=== PATIENT | female | born 1980 | race Caucasian/White ===

== ENCOUNTER 2022-09-22 08:01 | Outpatient (CLI) | payer BC, SELFPAY ==
--- OUTSIDE RECORDS SUMMARY | 2022-09-22 08:05 | XMS_ITS | Encounter Summary ---
:1980 Author Organization [facility] Address [address] [place] [id number] Care Team Providers Name Role Phone Unavailable Primary Care Provider Unavailable Reason for Visit Reason Comments RECHECK Thyroid Encounter Details Date Type Department Care Team Description 11/23/2016 Office Visit [facility] Boyd Pool ease (Primary Dx); [facility] [place] SADIE Paulson CNP [place] [id number] [id number] [place] [address] [phone] Social History Tobacco Use Types Packs/Day Years Used Date Smoking Tobacco: Never Alcohol Use Standard Drinks/Week Comments Not Asked 0 (1 standard drink = 0.6 oz pure alcoho l) Sex Assigned at Date Recorded Not on file documented as of this encounter Last Filed Vital Signs Vital Sign Reading Time Taken Comments Blood Pressure 110/66 11/23/2016 10:02 AM ELECTRONIC TECHNICIAN Pulse 70 11/23/2016 10:02 AM ELECTRONIC TECHNICIAN Temperature 36.8 ??C (98.3 ??F) 11/23/2016 10:02 AM ELECTRONIC TECHNICIAN Respiratory Rate - - Oxygen Saturation - - Inhaled Oxygen Concentration - - Weight 63.2 kg (139 lb 4.8 oz) 11/23/2016 10:02 AM ELECTRONIC TECHNICIAN Height 173.4 cm (5' 8.25) 11/23/2016 10:02 AM ELECTRONIC TECHNICIAN Body Mass Index 21.03 11/23/2016 10:02 AM ELECTRONIC TECHNICIAN documented in this encounter Progress Notes Boyd Pool APRN CNP - 11/24/2016 7:50 PM ELECTRONIC TECHNICIAN Quick Note: Please call - Nely, Your thyroid hormone level is now normal, the TSH is still low but that takes a bit longer to normalize. I would like you to try decreasing the Methimazole to 15 mg (1.5 tabs per day). You can take the 1.5 tabs one time daily every morning. Please follow up in 3 months as we discussed. If you note some of the hyperthyroid symptoms returning with the decreased dose, let me know. If you have any questions, let me know. Boyd Pool NP Endocrinology Ange Brown MA - 11/23/2016 10:01 AM CST Chief Complaint Patient presents with ??? RECHECK Thyroid Initial BP 110/66 mmHg Pulse 70 Temp(Src) 98.3 ??F (36.8 ??C) Ht 5' 8.25 (1.734 m) Wt 139 lb 4.8 oz (63.186 kg) BMI 21.01 kg/m2 Estimated body mass index is 21.01 kg/(m^2) as calculated fromthe following: Height as of this encounter: 5' 8.25 (1.734 m). Weight as of this encounter: 139 lb 4.8 oz (63.186 kg). BP completed using cuff size: alex Martin CMA 11/23/2016 10:04 AM TRONIC TECHNICIAN Boyd Pool APRN CNP - 11/23/2016 9:57 AM CST Name: Nely Bean Seen at the request of Anthony Smith for Hyperthyroidism (Last seen 10/13/2016). HPI: Nely Bean is a 36 year old female who presents for the evaluation of Hyperthyroidism. Symptoms started late July to early August - tachycardia, shakiness. She went to her PCP just after Thanks for further evaluation. W/u was significant for low TSH <0.015, elevated free T4 of 3.95 (0.70-1.85). Thyroid uptake scan done 10/05/2016 was elevated at 71.4%. TSI's were elevated consistent with Graves' disease. She started Methimazole 10 mg bid on 10/13/2016) , 5-6 weeks ago. Has noted improvement in symptoms - tremor resolved, bowel movements are now normal, weight is stable, sleeping better. 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 Vital Signs 10/13/2016 11/23/2016 Weight (LB) 139 lb 139 lb 4.8 oz PMH/PSH: Past Medical History Diagnosis Date ??? Graves disease No past surgical history on file. Family Hx: Family History Problem Relation Age of Onset ??? CEREBROVASCULAR DISEASE Mother ??? Coronary Artery Disease Early Onset Father Thyroid disease: Yes: mother with hyperthyroidism DM2: Yes: father Autoimmune: DM1, SLE, RA, Vitiligo No Social Hx: Social History Social History ??? Marital Status: Spouse Name: N/A ??? Number of Children: N/A ??? Years of Education: N/A Occupational History ??? Not on file. Social History Main Topics ??? Smoking status: Never Smoker ??? Smokeless tobacco: Not on file ??? Alcohol Use: Not on file ??? Drug Use: Not on file ??? Sexual Activity: Not on file Other Topics Concern ??? Not on file Social History Narrative MEDICATIONS: has a current medication list which includes the following prescription(s): methimazole, cyclafem , ketoconazole, betamethasone dipropionate, and fluticasone. ROS ROS: 10 point ROS neg other than the symptoms noted above in the HPI. Physical Exam VS: BP 110/66 mmHg Pulse 70 Temp(Src) 98.3 ??F (36.8 ??C) Ht 1.734 m (5' 8.25) Wt 63.186 kg(139 lb 4.8 oz) BMI 21.01 kg/m2 GENERAL: AXOX3, NAD, well dressed, answering questions appropriately, appears stated age. HEENT: OP clear, no LAD, no TM, non-tender, no exophthalmos, no proptosis, EOMI, no lig lag, no retraction NECK: Supple. Thyroid gland minimally enlarged, slightly irregular, no distinct nodules palpable. CV: RRR LUNGS: CTAB ABDOMEN: soft, nontender, nondistended EXTREMITIES: no edema, +pulses, no rashes, no lesions, no pretibial edema NEUROLOGY: CN grossly intact, no tremors MSK: grossly intact SKIN: no rashes, no lesions LABS: TFTs: !THYROID Latest Ref Rng 09/28/2016 Free T4 3.95 (H) TSH 0.270 - 4.200 uIU/mL <0.015 (L) Component Latest Ref Rng 10/13/2016 Thyroid Stim Immunog 3.7 (H) CBC: LFTs: Component Latest Ref Rng 10/13/2016 Bilirubin Direct 0.0 - 0.2 mg/dL 0.1 Bilirubin Total 0.2 - 1.3 mg/dL 0.4 Albumin 3.4 - 5.0 g/dL 3.5 Protein Total 6.8 - 8.8 g/dL 7.1 Alkaline Phosphatase 40 - 150 U/L 123 ALT 0 - 50 U/L 53 (H) AST 0 - 45 U/L 33 Thyroid uptake scan ([place]) 10/05/2016: 24-hour uptake 71.4%. All pertinent notes, labs, and images personally reviewed by me. A/P Ms.Deborah Bean is a 36 year old here for the evaluation of Graves' Disease. Treatment of Graves' hyperthyroidism consists of amelioration of symptoms with a beta-ruiz and measures aimed at decreasing thyroid hormone synthesis: the administration of a thionamide, radioiodineablation, or surgery. Thionamides -- Thionamides (methimazole and propylthiouracial (PTU)). Methimazole is preferred because of its longer duration of action (once daily dosing) and has lower incidence of side effects. PTU is preferred during because of the potential teratogenic effects of methimazole. The goal of therapy in Graves' hyperthyroidism is to be euthyroid within three to eight weeks. This can be followed by ablative therapy with radioiodine or surgery or by continuation of the drug for a prolonged period (usually one to two years) with the hope of attaining a permanent remission. If long-term medical therapy is chosen, the dose of methimazole is then tapered to a maintenance dose with the goal of maintaining a euthyroid state. Both MMI and PTU can cause pruritus, rash, urticaria, arthralgias, arthritis, fever, abnormal taste sensation, nausea, or vomiting in up to 13 percent of patients. If one drug is not tolerated, the other drug can be substituted, but up to 50 percent of patients have cross-sensitivity. The gastrointestinal side effects are dose-dependent. Thus, patients taking higher doses of MMI should be started on divided doses. Agranulocytosis is a rare but serious complication of thionamide therapy, with a prevalence of 0.2 to 0.5 percent, and usually occurs within the first two months of treatment. The risk of agranulocytosis is higher for antithyroid drugs than for 20 other classes of drugs associated with this rare complication. Hepatotoxicity is a rare complication of thionamide therapy. Serum aminotransferase concentrations increase transiently in up to one-third of patients taking PTU. Radioiodine ablation -- Radioiodine is widely used for the treatment of Graves' hyperthyroidism. It is the therapy of choice in the [place]. Radioiodine therapy may be associated with an increased risk of the development or worsening of Graves' ophthalmopathy. Radioiodine is administered as a capsule and induces extensive tissue damage, resulting in ablation of the thyroid within 6 to 18 weeks.Approximately 20 percent of patients fail the first radioiodine treatment and require a second or subsequent dose. These patients usually have more severe hyperthyroidism or larger goiters. Thyroid uptake scan showed the possibility of a mildly hypofunctioning nodule in the lower pole of the right thyroid lobe. Will obtain thyroid ultrasound for further evaluation. Continue Methimazole-plan to treat for 18 months, then withdraw (until 03/2018). Will obtain TFT's today and adjust Methimazole dose if indicated. Labs ordered today: Orders Placed This Encounter Procedures ??? US Thyroid ??? TSH ??? T4 FREE ??? WBC count ??? Hepatic panel Radiology/Consults ordered today: US THYROID More than 50% of the time spent with Ms. Bean on counseling / coordinating her care. Total face toface time was greater than or equal to 15 minutes. Follow-up: 3 months Boyd Pool NP Endocrinology [facility] CC: Anthony Smith MD [facility] TRONIC TECHNICIAN documented in this encounter Miscellaneous Notes Addendum Note - Boyd Pool APRN CNP - 11/24/2016 7:54 PM ELECTRONIC TECHNICIAN Addended by: BOYD POOL on: 11/24/2016 07:54 PM Modules accepted: Orders TRONIC TECHNICIAN documented in this encounter Plan of Treatment Not on filedocumented as of this encounter Procedures Procedure Name Priority Date/Time Associated Diagnosis Comme nts WBC COUNT Routine 11/23/2016 10:30 AM Graves disease Result s for this ELECTRONIC TECHNICIAN procedure are i n the results section. TSH Routine 11/23/2016 10:30 AM Graves disease Result s for this ELECTRONIC TECHNICIAN procedure are i n the results section. T4 FREE Routine 11/23/2016 10:30 AM Graves disease Result s for this ELECTRONIC TECHNICIAN procedure are i n the results section. HEPATIC FUNCTION Routine 11/23/2016 10:30 AM Graves disease Re sults for this PANEL ELECTRONIC TECHNICIAN procedure are i n the results section. documented in this encounter Results US Thyroid (12/06/2016 10:31 AM ELECTRONIC TECHNICIAN) Anatomical Region Laterality Modality Head Ultrasound Specimen (Source) Anatomical Location Collection Method / Collectio n Time Received Time / Laterality Volume Impressions 12/07/2016 11:51 AM ELECTRONIC TECHNICIAN IMPRESSION: ??Heterogeneous appearance of the thyroid without distinct nodules. ?? FRANKLYN VIRAMONTES MD Narrative 12/07/2016 11:51 AM ELECTRONIC TECHNICIAN ULTRASOUND THYROID ??12/06/2016 10:31 AM HISTORY: Thyrotoxicosis with diffuse goi ter without thyrotoxic crisis or storm. COMPARISON: None. FINDINGS: The right lobe measures 5.4 x 1.8 x 1.2 cm. The left lobe measures 5.7 x 1.5 x 1.3 cm. The isthmus is normal in thickness. Thyroid parenchyma is heterogeneous in e chotexture. No distinct nodules. Procedure Note Franklyn Viramontes MD - 12/07/2016Fo rmatting of this note might be different from the original. ULTRASOUND THYROID 12/06/2016 10:31 AM HISTORY: Thyrotoxicosis with diffuse goi ter without thyrotoxic crisis or storm. COMPARISON: None. FINDINGS: The right lobe measures 5.4 x 1.8 x 1.2 cm. The left lobe measures 5.7 x 1.5 x 1.3 cm. The isthmus is normal in thickness. Thyroid parenchyma is heterogeneous in e chotexture. No distinct nodules. IMPRESSION: Heterogeneous appearance of the thyroid without distinct nodules. FRANKLYN VIRAMONTES MD Boyd Pool APRN, CNP IMG US ORDERABLES Hepatic panel (11/23/2016 10:30 AM ELECTRONIC TECHNICIAN) Analysis Performed At Patho logist Time Signature Bilirubin Direct <0.1 0.0 - 0.2 [place] mg/dL [facility] Bilirubin Total 0.4 0.2 - 1.3 [place] mg/dL [facility] Albumin 3.5 3.4 - 5.0 [place] g/dL [facility] Protein Total 7.2 6.8 - 8.8 [place] g/dL [facility] Alkaline 147 40 - 150 [place] Phosphatase U/L [facility] ALT 29 0 - 50 U/L [facility] AST 20 0 - 45 U/L [facility] Specimen Anatomical Collection Method Collection Time Receive d Time (Source) Location / / Volume Laterality Blood specimen 11/23/2016 10:30 7 (specimen) AM ELECTRONIC TECHNICIAN 10:31 AM ELECTRONIC TECHNICIAN Boyd Pool APRN, CNP LAB - BLOOD ORDERABLES Performing Organization Address City/[facility]/ZIP Code Phon e Number [facility] [address] [place] [address] WBC count (11/23/2016 10:30 AM ELECTRONIC TECHNICIAN) P athologist Signature WBC 4.2 4.0 - 11.0 [place] 10e9/L [facility] Specimen Anatomical Collection Method Collection Time Receive d Time (Source) Location / / Volume Laterality Blood specimen 11/23/2016 10:30 7 (specimen) AM ELECTRONIC TECHNICIAN 10:31 AM ELECTRONIC TECHNICIAN Boyd Pool APRN, CNP LAB - BLOOD ORDERABLES Performing Organization Address City/[facility] Phon e Number [facility] [address] [place] [address] T4 FREE (11/23/2016 10:30 AM ELECTRONIC TECHNICIAN) P athologist Signature T4 Free 1.04 0.76 - 1.46 [facility] ng/dL [facility] Specimen Anatomical Collection Method Collection Time Receive d Time (Source) Location / / Volume Laterality Blood specimen 11/23/2016 10:30 7 (specimen) AM ELECTRONIC TECHNICIAN 10:31 AM ELECTRONIC TECHNICIAN Boyd Pool APRN WINK CUTTER OPERATOR LAB - BLOOD ORDERABLES Performing Organization Address City/[facility]/ZIP Code Phon e Number [facility] [address] [address] (ABNORMAL) TSH (11/23/2016 10:30 AM ELECTRONIC TECHNICIAN) P athologist Signature TSH <0.01 (L) 0.40 - [facility] 4.00 mU/L [facility] Specimen Anatomical Collection Method Collection Time Receive d Time (Source) Location / / Volume Laterality Blood specimen 11/23/2016 10:30 7 (specimen) AM ELECTRONIC TECHNICIAN 10:31 AM ELECTRONIC TECHNICIAN Boyd Pool APRN, CNP LAB - BLOOD ORDERABLES Performing Organization Address City/[facility]/ZIP Code Phon e Number [facility] [address] [place] [phone] documented in this encounter Visit Diagnoses Diagnosis Graves disease - Primary Toxic diffuse goiter without mention of thyrotoxic crisis or storm Hyperthyroidism Thyrotoxicosis without mention of goiter or other cause, without mention of thyrotoxic crisis or storm Graves disease Toxic diffuse goiter without mention of thyrotoxic crisis or storm documented in this encounter
--- OUTSIDE RECORDS SUMMARY | 2022-09-22 08:05 | XMS_ITS | Encounter Summary ---
:1980 Author Organization [place] Address [facility] [place] [address] Care Team Providers Name Role Phone No Ref-Primary, Physician Primary Care Provider [phone] Reason for Visit Reason Comments Thyroid Problem d/c'd Methimazole summer 7. Having fatigue, insomnia, emotional Encounter Details Date Type Department Care Team Description 10/04/2018 Office Visit [facility] Marija Pool dis ease [facility] [place] SADIE Paulson CNP (Primary Dx) [address] [place] [id number] [phone] Social History Tobacco Use Types Packs/Day Years Used Date Smoking Tobacco: Never Smokeless Tobacco: Never Alcohol Use Standard Drinks/Week Comments Not Asked 0 (1 standard drink = 0.6 oz pure alcoho l) Sex Assigned at Date Recorded Not on file documented as of this encounter Last Filed Vital Signs Vital Sign Reading Time Taken Comments Blood Pressure 116/70 10/04/2018 3:11 PM FINE JEWELRY SALES ASSOCIATE Pulse 66 10/04/2018 3:11 PM FINE JEWELRY SALES ASSOCIATE Temperature 36.9 ??C (98.4 ??F) 10/04/2018 3:11 PM FINE JEWELRY SALES ASSOCIATE Respiratory Rate - - Oxygen Saturation 98% 10/04/2018 3:11 PM FINE JEWELRY SALES ASSOCIATE Inhaled Oxygen Concentration - - Weight 71.4 kg (157 lb 6.4 oz) 10/04/2018 3:11 PM FINE JEWELRY SALES ASSOCIATE Height - - Body Mass Index 25.41 02/22/2017 10:05 AM CDT documented in this encounter Progress Notes Marija Pool APRN CNP - 10/04/2018 3:00 PM CST Name: Nely Bean F/u for Hyperthyroidism (Last seen 02/22/2017). HPI: Nely Bean is a 38 year old female who presents for the management of Hyperthyroidism. Symptoms started late July to early August - tachycardia, shakiness. She went to her PCP just after Thanks for further evaluation. W/u was significant for low TSH <0.015, elevated free T4 of 3.95 (0.70-1.85). Thyroid uptake scan done 10/05/2016 was elevated at 71.4%. TSI's were elevated consistent with Graves' disease. She started Methimazole 10 mg bid on 10/13/2016. Stopped Methimazole sometime in the summer of 2016 - was feeling euthyroid and noting weight gain - labs done through PCP showed normal thyroid function. Was feeling well until about 2-3 months ago when she started noting increased emotional lability, + insomnia, fatigue, feeling sluggish. PMH/PSH: Past Medical History: Diagnosis Date ??? Graves disease History reviewed. No pertinent surgical history. Family Hx: Family History Problem Relation Age of Onset ??? Coronary Artery Disease Early Onset Father ??? Cerebrovascular Disease Mother Thyroid disease: Yes: mother with hyperthyroidism DM2: Yes: father Autoimmune: DM1, SLE, RA, Vitiligo No Social Hx: Social History Social History ??? Marital status: Spouse name: N/A ??? Number of children: N/A ??? Years of education: N/A Occupational History ??? Not on file. Social History Main Topics ??? Smoking status: Never Smoker ??? Smokeless tobacco: Never Used ??? Alcohol use Not on file ??? Drug use: Not on file ??? Sexual activity: Not on file Other Topics Concern ??? Not on file Social History Narrative MEDICATIONS: has a current medication list which includes the following prescription(s): betamethasone dipropionate, cyclafem , and ketoconazole. ROS ROS: 10 point ROS neg other than the symptoms noted above in the HPI. Physical Exam VS: BP 116/70 (BP Location: Left arm, Patient Position: Chair, Cuff Size: Adult Regular) Pulse 66 Temp 98.4 ??F (36.9 ??C) (Oral) Wt 71.4 kg (157 lb 6.4 oz) LMP 09/26/2018 (Exact Date) SpO2 98% ? No BMI 25.41 kg/m2 GENERAL: AXOX3, NAD, well dressed, answering questions appropriately, appears stated age. HEENT: no exophthalmos, no proptosis, no lig lag, no retraction NECK: Supple. Thyroid gland minimally enlarged, slightly irregular, no distinct nodules palpable. CV: RRR LUNGS: CTAB EXTREMITIES: no edema NEUROLOGY: CN grossly intact, no tremors MSK: grossly intact LABS: TFTs: !THYROID Latest Ref Rng & Units 02/22/2017 11/23/2016 09/28/2016 TSH 0.40 - 4.00 mU/L <0.01 (L) <0.01 (L) <0.015 (L) T4 FREE 0.76 - 1.46 ng/dL 1.90 (H) 1.04 Component Latest Ref Rng 10/13/2016 Thyroid Stim Immunog 3.7 (H) CBC: Component Latest Ref Rng & Units 11/23/2016 WBC 4.0 - 11.0 10e9/L 4.2 LFTs: !LIPID/HEPATIC Latest Ref Rng & Units 10/13/2016 11/23/2016 AST 0 - 45 U/L 33 20 ALT 0 - 50 U/L 53 (H) 29 Thyroid uptake scan ([place]) 10/05/2016: 24-hour uptake 71.4%. ULTRASOUND THYROID 12/06/2016 ?? HISTORY: Thyrotoxicosis with diffuse goiter without thyrotoxic crisis or storm. ?? COMPARISON: None. ?? FINDINGS: The right lobe measures 5.4 x 1.8 x 1.2 cm. The left lobe measures 5.7 x 1.5 x 1.3 cm. The isthmus is normal in thickness. Thyroid parenchyma is heterogeneous in echotexture. No distinct nodules. ? IMPRESSION: Heterogeneous appearance of the thyroid without distinct nodules. All pertinent notes, labs, and images personally reviewed by me. A/P Ms.Deborah Bean is a 38 year old here for the evaluation of [...] lower pole of the right thyroid lobe. No nodules seen on recent thyroid ultrasound. Off Methimazole since summer 2016. Now noting weight gain and fatigue. Will obtain thyroid antibodies and TFT's for further evaluation. Labs ordered today: Orders Placed This Encounter Procedures ??? TSH ??? T4 FREE ??? T3 Free ??? Thyroid peroxidase antibody ??? Anti thyroglobulin antibody Radiology/Consults ordered today: None More than 50% of the time spent with Ms. Bean on counseling / coordinating her care. Total face toface time was greater than or equal to 25 minutes. Follow-up: To be determined based on lab results. Marija Pool NP Endocrinology [facility] CC: Anthony Smith MD [facility] JEWELRY SALES ASSOCIATE documented in this encounter Miscellaneous Notes Result Encounter Note - Marija Pool APRN CNP - 10/04/2018 3:00 PM FINE JEWELRY SALES ASSOCIATE Nely, Your thyroid levels are normal. The Graves' disease is still in remission. The other thyroid antibodies for Nimesh's were not elevated. Here's a copy of the results for your records. This does not appear to be the reason for your fatigue. You should see your primary care provider for further evaluation if the fatigue continues. Marija Pool NP Endocrinology JEWELRY SALES ASSOCIATE documented in this encounter Plan of Treatment Not on filedocumented as of this encounter Procedures Procedure Name Priority Date/Time Associated Comments Diagnosis TSH Routine 10/04/2018 3:53 PM Graves disease Results for this FINE JEWELRY SALES ASSOCIATE procedure are i n the results section. THYROID PEROXIDASE Routine 10/04/2018 3:53 PM Graves disease R esults for this ANTIBODY FINE JEWELRY SALES ASSOCIATE procedure are i n the results section. T4 FREE Routine 10/04/2018 3:53 PM Graves disease Results for this FINE JEWELRY SALES ASSOCIATE procedure are i n the results section. T3 FREE Routine 10/04/2018 3:53 PM Graves disease Results for this FINE JEWELRY SALES ASSOCIATE procedure are i n the results section. ANTI THYROGLOBULIN Routine 10/04/2018 3:53 PM Graves disease R esults for this ANTIBODY FINE JEWELRY SALES ASSOCIATE procedure are i n the results section. documented in this encounter Results Anti thyroglobulin antibody (10/04/2018 3:53 PM FINE JEWELRY SALES ASSOCIATE) Patholo gist Method Time Signature Thyroglobulin <20 <40 IU/mL 10/06/2018 [facility] Antibody 12:06 PM [facility] Specimen Anatomical Collection Method Collection Time Receive d Time (Source) Location / / Volume Laterality Blood specimen 10/04/2018 3:53 PM 018 3:54 (specimen) FINE JEWELRY SALES ASSOCIATE PM FINE JEWELRY SALES ASSOCIATE Marija Pool APRN TESTER WASTE DISPOSAL LEAKAGE LAB - BLOOD ORDERABLES Performing Organization Address City/State/ZIP Code Phon e Number [address] Thyroid peroxidase antibody (10/04/2018 3:53 PM FINE JEWELRY SALES ASSOCIATE) athologist Signature Thyroid 10 <35 IU/mL 10/06/2018 [facility] Peroxidase 12:06 PM [facility] Specimen Anatomical Collection Method Collection Time Receive d Time (Source) Location / / Volume Laterality Blood specimen 10/04/2018 3:53 PM 018 3:54 (specimen) FINE JEWELRY SALES ASSOCIATE PM FINE JEWELRY SALES ASSOCIATE Marija Pool APRN, CNP LAB - BLOOD ORDERABLES Performing Organization Address City/State/ZIP Code Phon e Number [address] T3 Free (10/04/2018 3:53 PM FINE JEWELRY SALES ASSOCIATE) athologist Signature Free T3 2.7 2.3 - 4.2 10/05/2018 [facility] pg/mL 2:[address] [facility] Specimen Anatomical Collection Method Collection Time Receive d Time (Source) Location / / Volume Laterality Blood specimen 10/04/2018 3:53 PM 018 3:54 (specimen) FINE JEWELRY SALES ASSOCIATE PM FINE JEWELRY SALES ASSOCIATE Marija Pool APRN TESTER [employer]AK[employer] LAB - BLOOD ORDERABLES Performing Organization Address City/State/ZIP Code Phon e Number [address] T4 FREE (10/04/2018 3:53 PM FINE JEWELRY SALES ASSOCIATE) athologist Signature T4 Free 1.08 0.76 - 1.46 10/05/2018 [facility] ng/dL 1:[address] [facility] Specimen Anatomical Collection Method Collection Time Receive d Time (Source) Location / / Volume Laterality Blood specimen 10/04/2018 3:53 PM 018 3:54 (specimen) FINE JEWELRY SALES ASSOCIATE PM FINE JEWELRY SALES ASSOCIATE Marija Pool APRN TESTER [employer] LEAKAGE LAB - BLOOD ORDERABLES Performing Organization Address City/[facility]/ZIP Code Phon e Number [facility] [address] [place] [phone] TSH (10/04/2018 3:53 PM FINE JEWELRY SALES ASSOCIATE) P athologist Signature TSH 1.10 0.40 - 4.00 10/05/2018 [facility] mU/L 1:29 PM FINE JEWELRY SALES ASSOCIATE [facility] Specimen Anatomical Collection Method Collection Time Receive d Time (Source) Location / / Volume Laterality Blood specimen 10/04/2018 3:53 PM 018 3:54 (specimen) FINE JEWELRY SALES ASSOCIATE PM FINE JEWELRY SALES ASSOCIATE Marija Pool APRN, CNP LAB - BLOOD ORDERABLES Performing Organization Address City/[facility]/ZIP Code Phon e Number [facility] [address] [place] [phone] documented in this encounter Visit Diagnoses Diagnosis Graves disease - Primary Toxic diffuse goiter without mention of thyrotoxic crisis or storm documented in this encounter Care Teams Rn Utilization Management Um Relationship Specialty Start Date End Date No Ref-Primary, Physician PCP - General 10/04/18 documented as of this encounter
--- OUTSIDE RECORDS SUMMARY | 2022-09-22 08:05 | XMS_ITS | Clinical Summary ---
:1980 Author Organization [place] Address [address] [place] [address] Care Team Providers Name Role Phone No Ref-Primary, Physician Primary Care Provider [phone] Allergies No known active allergies Medications Medication Sig Dispensed Refills Start Date End Date Status CYCLAFEM 0 07/29/2016 Acti ve 0.5/0.75/1-35 MG-MCG per tablet ketoconazole (NIZORAL) APPLY TO SCALP LET 11 08/03/20 16 Active 2 % shampoo IT SIT FOR 15 MINUTES THAN WASH OFF DAILY betamethasone APPLY TOPICALLY TO 2 08/03/2016 Active dipropionate SCALP TWICE A DAY (DIPROSONE) 0.05 % FOR TWO WEEKS lotion Active Problems Problem Noted Date Graves disease 11/23/2016 Hyperthyroidism 10/13/2016 Family History Medical History Relation Comments Coronary Artery Disease Early Onset Father Cerebrovascular Disease Mother Relation Status Comments Father Mother Social History Tobacco Use Types Packs/Day Years Used Date Smoking Tobacco: Never Smokeless Tobacco: Never Tobacco Cessation: Counseling Given: Yes Alcohol Use Standard Drinks/Week Comments Not Asked 0 (1 standard drink = 0.6 oz pure alcoho l) Sex Assigned at Date Recorded Not on file Last Filed Vital Signs Vital Sign Reading Time Taken Comments Blood Pressure 116/70 10/04/2018 3:11 PM PROOFREADER Pulse 66 10/04/2018 3:11 PM PROOFREADER Temperature 36.9 ??C (98.4 ??F) 10/04/2018 3:11 PM PROOFREADER Respiratory Rate - - Oxygen Saturation 98% 10/04/2018 3:11 PM PROOFREADER Inhaled Oxygen Concentration - - Weight 71.4 kg (157 lb 6.4 oz) 10/04/2018 3:11 PM PROOFREADER Height 167.6 cm (5' 6) 02/22/2017 10:05 AM CDT Body Mass Index 25.41 02/22/2017 10:05 AM CDT Plan of Treatment Health Maintenance Due Date Last Done Comments ADVANCE CARE PLANNING 1980 ANNUAL REVIEW OF HM ORDERS 1980 HEPATITIS B IMMUNIZATION (1 1981 of 3 - 3-dose series) COVID-19 Vaccine (#1) 1980 HIV SCREENING 1996 HEPATITIS C SCREENING 1999 PAP 2002 DTAP/TDAP/TD IMMUNIZATION 2006 (1 - Tdap) YEARLY PREVENTIVE VISIT 05/16/2020 05/16/2019 PHQ-2 (once per calendar 10/31/2021 year) INFLUENZA VACCINE (#1) 2022 08/26/2018, 08/26/2017, 07/31/2013, Additional history exists IPV IMMUNIZATION Aged Out No longer eligi ble based on patient 's age to complete this topic MENINGITIS IMMUNIZATION Aged Out No longe r eligible based on patient 's age to complete this topic Pneumococcal Vaccine: Aged Out No longer eligible Pediatrics (0 to 5 Years) based on patient's age and At-Risk Patients (6 to to co mplete this topic 64 Years) Insurance Payer Benefit Plan / Subscriber ID Effective Dates Phone Addre ss Type Group BC[place] [id number] 2017-Roverto [id number] [address] [address] Indemnity t 0 [place] [address] Care Teams Compressor Battery Pellets Relationship Specialty Start Date End Date No Ref-Primary, Physician PCP - General 10/04/18
--- OUTSIDE RECORDS SUMMARY | 2022-09-22 08:05 | XMS_ITS | Encounter Summary ---
:1980 Author Organization [place] Address [address] [place] [address] Care Team Providers Name Role Phone Unavailable Primary Care Provider Unavailable Reason for Visit Reason Comments RECHECK thyoid Encounter Details Date Type Department Care Team Description 02/22/2017 Office Visit [facility] Boyd Pool dis ease (Primary Dx); Clinic [employer] SADIE Paulson CNP [address] [address] [place] [address] [phone] Social History Tobacco Use Types Packs/Day Years Used Date Smoking Tobacco: Never Tobacco Cessation: Counseling Given: Yes Alcohol Use Standard Drinks/Week Comments Not Asked 0 (1 standard drink = 0.6 oz pure alcoho l) Sex Assigned at Date Recorded Not on file documented as of this encounter Last Filed Vital Signs Vital Sign Reading Time Taken Comments Blood Pressure 122/62 02/22/2017 10:05 AM CDT Pulse 74 02/22/2017 10:05 AM CDT Temperature - - Respiratory Rate - - Oxygen Saturation - - Inhaled Oxygen Concentration - - Weight 64.4 kg (142 lb) 02/22/2017 10:05 AM CDT Height 167.6 cm (5' 6) 02/22/2017 10:05 AM CDT Body Mass Index 22.92 02/22/2017 10:05 AM CDT documented in this encounter Progress Notes Boyd Pool APRN CHECK AND TRANSFER BEADER - 02/25/2017 8:35 AM CDT Please call if she doesn't check her [employer] message. Nely, Your thyoid levels are elevated. I would like you to increase the Methimazole back to 10 mg twice daily (or you can take all 20 mg once per day as long as it doesn't upset you stomach). I'll renew your prescription. Please recheck labs again in one month and follow up with me in clinic in 3 months. Let me know if you have any questions. Boyd Pool APRN CNP - 02/22/2017 10:00 AM CDT Name: Nely Bean Seen at the request of Anthony Smith for Hyperthyroidism (Last seen 11/23/2016). HPI: Nely Bean is a 36 year [...] started Methimazole 10 mg bid on 10/13/2016. Has noted improvement in symptoms - tremor resolved, bowel movements are now normal, no further weight loss, sleeping better although still has trouble falling asleep, ? Chronic problem. Now noting some weight gain and fatigue in the evening. Methimazole dose was decreased to 15 mg/day 11/25/16. 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 Vital Signs 10/13/2016 11/23/2016 02/22/2017 Weight (LB) 139 lb 139 lb 4.8 oz 142 lb Height 5' 8.25 5' 6 BMI (Calculated) 21.07 22.97 PMH/PSH: Past Medical History: Diagnosis Date ??? Graves disease No past [...] Smokeless tobacco: Not on file ??? Alcohol use Not on file ??? [...] in the HPI. Physical Exam VS: BP 122/62 Pulse 74 Ht 1.676 m (5' 6) Wt 64.4 kg (142 lb) BMI 22.92 kg/m2 GENERAL: AXOX3, NAD, well dressed, answering questions appropriately, appears stated age. HEENT: OP clear, no LAD, no TM, non-tender, no exophthalmos, no proptosis, EOMI, no lig lag, no retraction NECK: Supple. Thyroid gland minimally enlarged, slightly irregular, no distinct nodules palpable. CV: RRR LUNGS: CTAB ABDOMEN: nondistended EXTREMITIES: no edema, +pulses, no rashes, no lesions, no pretibial edema NEUROLOGY: CN grossly intact, no tremors MSK: grossly intact SKIN: no rashes, no lesions LABS: TFTs: !THYROID Latest Ref Rng 09/28/2016 Free T4 3.95 (H) TSH 0.270 - 4.200 uIU/mL <0.015 (L) !THYROID Latest Ref Rng & Units 11/23/2016 TSH 0.40 - 4.00 mU/L <0.01 (L) T4 FREE 0.76 - 1.46 ng/dL 1.04 Component Latest Ref Rng 10/13/2016 Thyroid Stim Immunog 3.7 (H) CBC: Component Latest Ref Rng & Units 11/23/2016 WBC 4.0 - 11.0 10e9/L 4.2 LFTs: !LIPID/HEPATIC Latest Ref Rng & Units 10/13/2016 11/23/2016 AST 0 - 45 U/L 33 20 ALT 0 - 50 U/L 53 (H) 29 Thyroid uptake scan ([place]) 10/05/2016: 24-hour uptake 71.4%. ULTRASOUND THYROID 12/06/2016 [...] No nodules seen on recent thyroid ultrasound. Continue Methimazole-plan to treat for 18 months, then withdraw (until 03/2018). Will obtain TFT's today and adjust Methimazole dose if indicated. Labs ordered today: No orders of the defined types were placed in this encounter. Radiology/Consults ordered today: None More than 50% of the time spent with Ms. Bean on counseling / coordinating her care. Total face toface time was greater than or equal to 15 minutes. Follow-up: 3 months Boyd Pool NP Endocrinology [facility] CC: Anthony Smith MD [facility] Tammy Morrow - 02/22/2017 10:00 AM CDT Faxed [phone] Tammy Morrow FROTHING MACHINE OPERATOR documented in this encounter Miscellaneous Notes Addendum Note - Boyd Pool APRN CNP - 02/25/2017 8:37 AM CDT Addended by: BOYD POOL on: 02/25/2017 08:37 AM Modules accepted: Orders documented in this encounter Plan of Treatment Not on filedocumented as of this encounter Procedures Procedure Name Priority Date/Time Associated Diagnosis Comme nts WBC COUNT Routine 02/22/2017 10:21 AM Graves disease Result s for this CDT procedure are i n the results section. TSH Routine 02/22/2017 10:21 AM Graves disease Result s for this CDT procedure are i n the results section. T4 FREE Routine 02/22/2017 10:21 AM Graves disease Result s for this CDT procedure are i n the results section. HEPATIC FUNCTION Routine 02/22/2017 10:21 AM Graves disease Re sults for this PANEL CDT procedure are i n the results section. documented in this encounter Results Hepatic panel (02/22/2017 10:21 AM CDT) Analysis Performed At Patho logist Time Signature Bilirubin Direct 0.1 0.0 - 0.2 [place] mg/dL [facility] Bilirubin Total 0.4 0.2 - 1.3 [place] mg/dL [facility] Albumin 3.5 3.4 - 5.0 [facility] g/dL [facility] Protein Total 7.3 6.8 - 8.8 [place] g/dL [facility] Alkaline 148 40 - 150 [place] Phosphatase U/L [facility] ALT 15 0 - 50 U/L [facility] AST 10 0 - 45 U/L [facility] Specimen Anatomical Collection Method Collection Time Receive d Time (Source) Location / / Volume Laterality Blood specimen 02/22/2017 10:21 7 (specimen) AM CDT 10:22 AM CDT Boyd Pool APRN, CNP LAB - BLOOD ORDERABLES Performing Organization Address City/State/ZIP Code Phon e Number [facility] [address] [place] [address] WBC count (02/22/2017 10:21 AM CDT) P athologist Signature WBC 5.1 4.0 - 11.0 [place] 10e9/L [facility] Specimen Anatomical Collection Method Collection Time Receive d Time (Source) Location / / Volume Laterality Blood specimen 02/22/2017 10:21 7 (specimen) AM CDT 10:22 AM CDT Boyd Pool APRN CHECK AND TRANSFER BEADER LAB - BLOOD ORDERABLES Performing Organization Address City/[facility]/ZIP Code Phon e Number [facility] [address] [place] [address] (ABNORMAL) T4 FREE (02/22/2017 10:21 AM CDT) athologist Signature T4 Free 1.90 (H) 0.76 - [facility] 1.46 ng/dL [facility] Specimen Anatomical Collection Method Collection Time Receive d Time (Source) Location / / Volume Laterality Blood specimen 02/22/2017 10:21 7 (specimen) AM CDT 10:22 AM CDT Boyd Pool APRN CHECK AND TRANSFER BEADER LAB - BLOOD ORDERABLES Performing Organization Address City/[facility]/ZIP Code Phon e Number [facility] [address] [place] [address] (ABNORMAL) TSH (02/22/2017 10:21 AM CDT) P athologist Signature TSH <0.01 (L) 0.40 - [facility] 4.00 mU/L [facility] Specimen Anatomical Collection Method Collection Time Receive d Time (Source) Location / / Volume Laterality Blood specimen 02/22/2017 10:21 7 (specimen) AM CDT 10:22 AM CDT Boyd Pool APRN CHECK AND TRANSFER BEADER LAB - BLOOD ORDERABLES Performing Organization Address City/[facility]/ZIP Code Phon e Number [facility] [address] [place] [address] documented in this encounter Visit Diagnoses Diagnosis Graves disease - Primary Toxic diffuse goiter without mention of thyrotoxic crisis or storm Hyperthyroidism Thyrotoxicosis without mention of goiter or other cause, without mention of thyrotoxic crisis or storm documented in this encounter
--- OUTSIDE RECORDS SUMMARY | 2022-09-22 08:05 | XMS_ITS | Encounter Summary ---
:1980 Author Organization [place] Address [facility] [place] [address] Care Team Providers Name Role Phone Unavailable Primary Care Provider Unavailable Reason for Visit (Routine) - Closed Specialty Diagnoses / Procedures Referred By Contact Refer red To Contact Radiology / Diagnoses Epic order, sb pt. Rh Ultrasound cc Radiology. Procedures US THYROID [address] [facility] [address] [place] [address] Phone: Fax: Referral ID Status Reason Start Date Expiration Date Visits Requ ested Visits Authorized [id number] Closed 11/29/2016 11/29/2017 1 1 Encounter Details Date Type Department Care Team Description 12/06/2016 Hospital Encounter [facility] Marija Pool [facility] disease [facility] LILLI Paulson [facility] [address] [address] [place], [place] [address] [address] [place], [place] [phone] (Work) [phone] Social History Tobacco Use Types Packs/Day Years Used Date Smoking Tobacco: Never Alcohol Use Standard Drinks/Week Comments Not Asked 0 (1 standard drink = 0.6 oz pure alcoho l) Sex Assigned at Date Recorded Not on file documented as of this encounter Medications at Time of Discharge Medication Sig Dispensed Refills Start Date End Date betamethasone APPLY TOPICALLY TO 2 08/03/2016 dipropionate (DIPROSONE) SCALP TWICE A DAY 0.05 % lotion FOR TWO WEEKS CYCLAFEM 0 07/29/2016 0.5/0.75/1-35 MG-MCG per tablet ketoconazole (NIZORAL) 2 APPLY TO SCALP LET 11 01/2016 % shampoo IT SIT FOR 15 MINUTES THAN WASH OFF DAILY fluticasone (FLONASE) 50 0 02/13/2016 10/04/2018 MCG/ACT spray methimazole (TAPAZOLE) 10 Take 1.5 tablets 135 tablet 0 11/0102/25/2017 MG tabletIndications: (15 mg) by mouth Hyperthyroidism daily documented as of this encounter Progress Notes Marija Pool APRN CNP - 12/06/2016 11:59 PM DATA MANAGEMENT ASSOCIATE Quick Note: Nely, The ultrasound did not show any thyroid nodules. I'm sorry you had to do the ultrasound too but it is the only way to verify whether the decreased activity in the one area of your thyroid gland was due to a nodule or not. The most common cause of decreased activity in just part, or one area, of the thyroid gland is a nodule and if a nodule had been detected by ultrasound it would have required additional tests to make sure it was not abnormal. You do not have any nodules so the area on your thyroid gland showing decreased activity is nothingto worry about and requires no other testing. Please follow up in clinic again in January for a recheck. Let me know if you have any questions. Take Marija rea NP Endocrinology MANAGEMENT ASSOCIATE documented in this encounter Plan of Treatment Not on filedocumented as of this encounter Procedures Procedure Name Priority Date/Time Associated Diagnosis Comme nts US THYROID Routine 12/06/2016 10:31 AM Graves disease Result s for this DATA MANAGEMENT ASSOCIATE procedure are i n the results section . documented in this encounter Results US Thyroid (12/06/2016 10:31 AM DATA MANAGEMENT ASSOCIATE) Anatomical Region Laterality Modality Head Ultrasound Specimen (Source) Anatomical Location Collection Method / Collectio n Time Received Time / Laterality Volume Impressions 12/07/2016 11:51 AM DATA MANAGEMENT ASSOCIATE IMPRESSION: ??Heterogeneous appearance of the thyroid without distinct nodules. ?? FRANKLYN VIRAMONTES MD Narrative 12/07/2016 11:51 AM DATA MANAGEMENT ASSOCIATE ULTRASOUND THYROID ??12/06/2016 10:31 AM HISTORY: Thyrotoxicosis [...] thyroid without distinct nodules. FRANKLYN VIRAMONTES MD Marija Pool APRN TILE CLASSIFIER IMG US ORDERABLES documented in this encounter Visit Diagnoses Diagnosis Graves disease Toxic diffuse goiter without mention of thyrotoxic crisis or storm documented in this encounter
--- OUTSIDE RECORDS SUMMARY | 2022-09-22 08:05 | XMS_ITS | Encounter Summary ---
:1980 Author Organization [place] Address [address] [place] [address] Care Team Providers Name Role Phone Unavailable Primary Care Provider Unavailable Reason for Visit Reason Comments Thyroid Problem Encounter Details Date Type Department Care Team Description 10/13/2016 Office Visit [facility] Boyd Pool idism ([facility] [place] SADIE Paulson CNP Dx) [address] [place] [address], [id number] [place] [address] [phone] Social History Tobacco Use Types Packs/Day Years Used Date Smoking Tobacco: Never Sex Assigned at Date Recorded Not on file documented as of this encounter Last Filed Vital Signs Vital Sign Reading Time Taken Comments Blood Pressure 120/64 10/13/2016 3:37 PM ART HISTORIAN Pulse 84 10/13/2016 3:37 PM ART HISTORIAN Temperature - - Respiratory Rate - - Oxygen Saturation 99% 10/13/2016 3:37 PM ART HISTORIAN Inhaled Oxygen Concentration - - Weight 63 kg (139 lb) 10/13/2016 3:37 PM ART HISTORIAN Height - - Body Mass Index - - documented in this encounter Progress Notes Boyd Pool APRN CNP - 10/21/2016 7:02 AM ART HISTORIAN Quick Note: Please mail a copy of the results and my comments to the patient. Nely, Your test for Graves's disease was positive. We can discuss this in more detail at your follow up visit. Here's a copy of the results for your records. Take Boyd rea NP Endocrinology Boyd Burgos APRN CIRCUS SUPERVISOR - 10/13/2016 3:53 PM CST Name: Nely Bena Seen at the request of No ref. provider found for Hyperthyroidism. HPI: Nely Bean is a 36 year old female who presents for the evaluation of Hyperthyroidism. Symptoms started late July to early August - tachycardia, shakiness. She went to her PCP just after Thanks[place] for further evaluation. W/u was significant for low TSH <0.015, elevated free T4 of 3.95 (0.70-1.85). Thyroid uptake scan done 10/05/2016 was elevated at 71.4%. She is here today for further evaluation/treatment. 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 Graves disease History reviewed. No pertinent past surgical history. Family Hx: Family History Problem [...] ??? Not on file Social History Narrative ??? No narrative on file MEDICATIONS: has a current medication list which includes the following prescription(s): cyclafem , ketoconazole, betamethasone dipropionate, fluticasone, and methimazole. ROS ROS: 10 point ROS neg other than the symptoms noted above in the HPI. Physical Exam VS: BP 120/64 mmHg Pulse 84 Wt 63.05 kg (139 lb) SpO2 99% GENERAL: AXOX3, NAD, well dressed, answering questions appropriately, appears stated age. HEENT: OP clear, no LAD, no TM, non-tender, no exophthalmos, no proptosis, EOMI, no lig lag, no retraction CV: RRR, no rubs, gallops, no murmurs LUNGS: CTAB, no wheezes, rales, or rhonchi ABDOMEN: soft, nontender, nondistended, +BS, no organomegaly EXTREMITIES: no edema, +pulses, no rashes, no lesions, no pretibial edema NEUROLOGY: CN grossly intact, + DTR upper and lower extremity, no tremors MSK: grossly intact SKIN: no rashes, no lesions LABS: TFTs: CBC: LFTs: All pertinent notes, labs, and images personally reviewed by me. A/P Ms.Deborah Bean is a 36 year old here for the evaluation of hyperthyroidism. Suppressed TSH: Differential for hyperthyroidism includes: Graves' disease, thyroiditis, or autonomous hyperfunctioning nodule. An uptake and scan of her thyroid gland will help differentiate the diagnosis. In Graves' disease her uptake will be homogeneous and increased, in thyroiditis her uptake willbe low, and in an autonomous hyperfunctioing nodule the uptake will be increased in a focal area. Thyroid-stimulating immunoglobulins (TSI) can be detected in the majority of patients (77.8%) with Graves??? disease. It can be used to predict relapse or remission when using PTU/methimazole or radioiodine. These assays have also been advocated for use in patients with subclinical Graves??? hyperthyroidism or patients with unilateral ophthalmopathy. Thyrotoxicosis associated with subacute thyroiditis is usually mild and transient. The patient lacksthe physical findings of long-standing thyrotoxicosis. The goiter is typically painful and low or absent 131I uptake. Usually the erythrocyte sedimentation rate (ESR) and CRP are greatly elevated, and the leukocyte count may also be increased. Antibody titers are low or negative. Treatment of Graves' hyperthyroidism consists of amelioration of symptoms with a beta-ruiz and measures aimed at decreasing thyroid hormone synthesis: the administration of a thionamide, radioiodine ablation, or surgery. Thionamides -- Thionamides (methimazole and [...] have more severe hyperthyroidism or larger goiters. Start Methimazole 10 mg bid. Labs ordered today: Orders Placed This Encounter Procedures ??? Hepatic panel ??? Thyroid stimulating immunoglobulin Radiology/Consults ordered today: None More than 50% of the time spent with Ms. Bean on counseling / coordinating her care. Total face toface time was greater than or equal to 45 minutes. Follow-up: 1 month Boyd Pool NP Endocrinology [facility] CC: Thyroid uptake scan showed the possibility of a mildly hypofunctioning nodule in the lower pole of the right thyroid lobe. Will obtain thyroid ultrasound for further evaluation. HISTORIAN documented in this encounter Nursing Notes Shanelle Feliz - 10/13/2016 3:38 PM CST Chief Complaint Patient presents with ??? Thyroid Problem Initial BP 120/64 mmHg Pulse 84 Wt 139 lb (63.05 kg) SpO2 99% There is no height on file to calculate BMI. BP completed using cuff size: regular Shanelle Feliz MA HISTORIAN documented in this encounter Miscellaneous Notes Addendum Note - Boyd Pool APRN CNP - 10/18/2016 9:23 AM ART HISTORIAN Addended by: BOYD POOL on: 10/18/2016 09:23 AM Modules accepted: Orders HISTORIAN documented in this encounter Plan of Treatment Not on filedocumented as of this encounter Procedures Procedure Name Priority Date/Time Associated Diagnosis Comme nts THYROID STIMULATING Routine 10/13/2016 4:26 Hyperthyroidism Re sults for this IMMUNOGLOBULIN PM ART HISTORIAN procedure are in the results section. HEPATIC FUNCTION PANEL Routine 10/13/2016 4:26 Hyperthyroidism Results for this PM ART HISTORIAN procedure are i n the results section. documented in this encounter Results (ABNORMAL) Thyroid stimulating immunoglobulin (10/13/2016 4:26 PM ART HISTORIAN) P athologist Signature Thyroid Stim 3.7 (H) [facility] Comment: Reference range: <=1.3 Unit: TSI index (Note) Test Performed by: [address] [address] [place] Reporter: Savage Garza II, M.D., Ph.D. Specimen Anatomical Collection Method Collection Time Receive d Time (Source) Location / / Volume Laterality Blood specimen 10/13/2016 4:26 PM 016 4:27 (specimen) ART HISTORIAN PM ART HISTORIAN Boyd Pool APRN, CNP LAB - BLOOD ORDERABLES Performing Organization Address [facility]/ZIP Code Phon e Number [facility] [address] [place] [address] (ABNORMAL) Hepatic panel (10/13/2016 4:26 PM ART HISTORIAN) [facility] Method Time Signature Bilirubin Direct 0.1 0.0 - 0.2 [place] mg/dL [facility] Bilirubin Total 0.4 0.2 - 1.3 [place] mg/dL [facility] Albumin 3.5 3.4 - 5.0 [place] g/dL [facility] Protein Total 7.1 6.8 - 8.8 [place] g/dL [facility] Alkaline 123 40 - 150 [place] Phosphatase U/L [facility] ALT 53 (H) 0 - 50 U/L [facility] AST 33 0 - 45 U/L [facility] Specimen Anatomical Collection Method Collection Time Receive d Time (Source) Location / / Volume Laterality Blood specimen 10/13/2016 4:26 PM 016 4:27 (specimen) ART HISTORIAN PM ART HISTORIAN Boyd Pool APRN, CNP LAB - BLOOD ORDERABLES Performing Organization Address City/[facility]/ZIP Code Phon e Number [facility] [address] [place] [address] documented in this encounter Visit Diagnoses Diagnosis Hyperthyroidism - Primary Thyrotoxicosis without mention of goiter or other cause, without mention of thyrotoxic crisis or storm documented in this encounter
--- OUTSIDE RECORDS SUMMARY | 2022-09-22 08:05 | XMS_ITS | Encounter Summary ---
:1980 Author Organization [place] Address [address] [place] [address] Care Team Providers Name Role Phone Unavailable Primary Care Provider Unavailable Reason for Visit Reason Onset Date Comments Results 11/25/2016 Encounter Details Date Type Department Care Team Description 11/25/2016 Telephone [facility] Marija Pool, Results [place] SUBSCRIPTION CLERK CELLULAR PLASTICS CUTTER [id number] [place] [phone] [place] [address] (Wo rk) Social History Tobacco Use Types Packs/Day Years Used Date Smoking Tobacco: Never Alcohol Use Standard Drinks/Week Comments Not Asked 0 (1 standard drink = 0.6 oz pure alcoho l) Sex Assigned at Date Recorded Not on file documented as of this encounter Miscellaneous Notes Telephone Encounter - Lashay Chang RN - 11/26/2016 9:52 AM CST Called patient and advised of below. Patient agrees with plan. Lashay Chang RN D CARE TEAM LEAD Telephone Encounter - Lashay Chang RN - 11/25/2016 11:21 AM CST Notes Recorded by Lashay Chang RN on 11/25/2016 at 11:21 AM L/M to call. ??See telephone encounter. ??Lashay Chang RN ------ Notes Recorded by Marija Pool, SUBSCRIPTION CLERK CELLULAR PLASTICS CUTTER on 11/24/2016 at 7:50 PM Please call - Nely, Your thyroid hormone level is now normal, the TSH is still low but that takes a bit longer to normalize. I would like you to try decreasing the Methimazole to 15 mg (1.5 tabs per day). ??You can take the 1.5 tabs one time daily every morning. Please follow up in 3 months as we discussed. ??If you note some of the hyperthyroid symptoms returning with the decreased dose, let me know. If you have any questions, let me know. Marija Pool NP Endocrinology D CARE TEAM LEAD documented in this encounter Plan of Treatment Not on filedocumented as of this encounter Visit Diagnoses Not on filedocumented in this encounter
--- OUTSIDE RECORDS SUMMARY | 2022-09-22 08:06 | XMS_ITS ---
:1980 Author Care Team Providers Name Role Phone Shirley Lynch Primary Care Provider Unavailable Allergies Code Code System Name Reaction Severity Status Onset NKDA ? Medications Name Status Start Date Stop Date ? ? clobetasol 0.05 % scalp solution Active ? Not available APPLY TOPICALLY TO THE SCALP TWICE DAILY NEEDED fluocinolone 0.01 % scalp oil and shower cap Active ? Not available APPLY TOPICALLY TO SCALP AND EARS AT BEDTIME NEEDED Nortrel 1/35 (28) 1 mg-35 mcg tablet Completed ? 08/12/2022 TAKE 1 TABLET BY MOUTH EVERY DAY Nortrel 7/7/7 (28) 0.5 mg/0.75 mg/1 mg-35 mcg tablet Completed ? 08/12/2022 TAKE 1 TABLET BY MOUTH EVERY DAY Problems None recorded. Procedures Date Name Performed by ? ? Tonsillectomy Information not avai lable ? Colposcopy of Cervix Information not sanket ilable Notes: *Surgery Date: 07/2004; 01/2005 wnl ? Radical Bunionectomy Information not sanket ilable Notes: *Surgery Date: 1991 ? Tonsillectomy Information not avai lable Notes: *Surgery Date: 2002 ? Tooth Extraction Information not avai lable Notes: *Surgery Date: 2002 Results Lab Results Date Name Specimen Result Interpretation Description Value Range Status Address ? 07/30/2021 HPV DNA, CERVIX&CERVIX ? HPV negative negative [facility] High-risk High for HPV for HPV Memor ial Risk type 16. type 16. Health - Type 16 Lab: [address], [place] ? ? CERVIX&CERVIX ? HPV negative negative [facility] High for HPV for HPV [facility] Risk type 18. type 18. Health - Type 18 Lab: [address], [place] ? ? CERVIX&CERVIX ? HPV negative negative [facility] Other for other for other [place] High high risk high risk Heal th - Risk HPV HPV Lab: [address], [place] 07/30/2021 Pap, LB CERVIX&CERVIX ? Case see note ? Com taylor [facility] - Lab: [address], [place] Past Encounters 08/12/2022 Gynecologic Examination; Administration of Influenza Vaccine; Depressive Disorder Shirley Lynch MD: [address] [facility] [address], [address], [place] [address], Ph. 07/30/2021 Gynecologic Examination; Contraception C are Management; Administration of Influenza Vaccine Shirley Lynch MD: [address], [address], [place] [address], Ph. Social History Tobacco Smoking Status Never Smoker Vaccine List Vaccine Type Influenza, injectable, MDCK, preservativ e free, quadrivalent 07/30/2021?0.5 mL 08/12/2022?0.5 Plan of Care Reminders Provider Appointments None recorded. ? ? Lab None recorded. ? ? Referral None recorded. ? ? Procedures None recorded. ? ? Surgeries None recorded. ? ? Imaging None recorded. ? ? Vitals 08/12/2022 10:00AM G_ANNUAL EXAM Height Weight BMI Blood Pressure 5 ft 7 in 155.8 lbs 24.4 kg/m2 118/78 mm[Hg] 07/30/2021 10:45AM G_ANNUAL EXAM Height Weight BMI Blood Pressure 5 ft 7 in 154.8 lbs 24.2 kg/m2 116/78 mm[Hg] 05/16/2019 Height Weight BMI Blood Pressure 5 ft 8.04 in 160.13 lbs 24.35 kg/m2 118/68 mm[Hg] 05/15/2018 Height Weight BMI Blood Pressure 5 ft 8.04 in 154 lbs 23.42 kg/m2 112/78 mm[Hg] 04/18/2017 Height Weight BMI Blood Pressure 5 ft 8.04 in 149 lbs 22.66 kg/m2 120/72 mm[Hg] 02/11/2016 Height Weight BMI Blood Pressure 5 ft 8.04 in 144.19 lbs 21.92 kg/m2 108/74 mm[Hg] 08/05/2014 Height Weight BMI Blood Pressure 5 ft 8.04 in 142.63 lbs 21.69 kg/m2 112/72 mm[Hg] 07/10/2013 Height Weight BMI Blood Pressure 5 ft 8.04 in 141.5 lbs 21.51 kg/m2 110/62 mm[Hg] 04/13/2012 Height Weight BMI Blood Pressure 5 ft 8.04 in 142 lbs 21.59 kg/m2 102/64 mm[Hg] 01/29/2011 Height Weight BMI Blood Pressure 5 ft 8.04 in 137 lbs 20.83 kg/m2 98/68 mm[Hg] 01/15/2010 Height Weight BMI Blood Pressure 5 ft 8.04 in 139 lbs 21.13 kg/m2 112/68 mm[Hg] 01/02/2009 Height Weight BMI Blood Pressure 5 ft 8.04 in 129 lbs 19.61 kg/m2 108/68 mm[Hg]
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
[2022-09-22 14:31] LABS: Albumin* 4.1 g/dL (3.3-5.0); Chloride* 105 mmol/L (96-114); Sodium* 141 mmol/L (135-149)
[2022-09-22 14:33] LABS: Carbon Dioxide* 30 mmol/L (20-32); Cholesterol* 153 mg/dL (90-199); Creatinine* 0.6 mg/dL (0.5-1.5); Estimated Glomerular Filt Rate 116 ml/min
[2022-09-22 14:34] LABS: Alanine Aminotransferase* 41 U/L (4-35); Alkaline Phosphatase* 123 U/L (40-150); Aspartate Amino Transferase* 32 U/L (12-35); Bilirubin Total* 0.8 mg/dL (0.1-1.5); Blood Urea Nitrogen* 19 mg/dL (5-24); Glucose* 94 mg/dL (60-115); HDL Cholesterol* 47 mg/dL (>=50); LDL Cholesterol Calculated 86 mg/dL (<100); Total Protein* 6.6 g/dL (6.0-8.3); Triglycerides* 99 mg/dL (40-149)
[2022-09-22 16:15] LABS: Potassium* 6.3 mmol/L (3.6-5.1)
[2022-09-22 16:16] LABS: TSH With Reflex to FT4* < 0.015 uIU/mL (0.270-4.200)
[2022-09-22 19:13] LABS: Free T4 Free Thyroxine* 6.23 ng/dL (0.70-1.85)
== END 2022-09-22 08:02 | disposition home or self-care (01) ==
PROVIDERS: PCP Family Medicine; Visit Provider Family Medicine
DX: Z01.419 Encounter for gynecological examination (general) (routine) without abnormal findings (principal); E05.00 Thyrotoxicosis with diffuse goiter without thyrotoxic crisis or storm; E78.5 Hyperlipidemia, unspecified; R00.2 Palpitations; R53.83 Other fatigue
CPT/HCPCS: 80053; 80061; 84439; 84443

== ENCOUNTER 2022-09-27 07:26 | Outpatient (CLI) | payer BC, SELFPAY ==
--- OUTSIDE RECORDS SUMMARY | 2022-09-27 07:28 | XMS_ITS | Encounter Summary ---
:1980 Author Organization [place] Address [facility] [place] [address] Care Team Providers Name Role Phone No Ref-Primary, Physician Primary Care Provider [phone] Reason for Visit Reason Comments Thyroid Problem d/c'd Methimazole summer 7. Having fatigue, insomnia, emotional Encounter Details Date Type Department Care Team Description 10/04/2018 Office Visit [facility] Marija Pool dis ease [facility] SADIE Paulson CNP (Primary Dx) [address] [place] [id number] [phone] Social History Tobacco Use Types Packs/Day Years Used Date Smoking Tobacco: Never Smokeless Tobacco: Never Alcohol Use Standard Drinks/Week Comments Not Asked 0 (1 standard drink = 0.6 oz pure alcoho l) Sex Assigned at Date Recorded Not on file documented as of this encounter Last Filed Vital Signs Vital Sign Reading Time Taken Comments Blood Pressure 116/70 10/04/2018 3:11 PM CRYSTALIZER Pulse 66 10/04/2018 3:11 PM CRYSTALIZER Temperature 36.9 ??C (98.4 ??F) 10/04/2018 3:11 PM CRYSTALIZER Respiratory Rate - - Oxygen Saturation 98% 10/04/2018 3:11 PM CRYSTALIZER Inhaled Oxygen Concentration - - Weight 71.4 kg (157 lb 6.4 oz) 10/04/2018 3:11 PM CRYSTALIZER Height - - Body Mass Index 25.41 [...] U/L 53 (H) 29 Thyroid uptake scan ([place]) 10/05/2016: 24-hour uptake 71.4%. ULTRASOUND THYROID 12/06/2016 [...] be determined based on lab results. Marija Polo NP Endocrinology [facility] CC: Anthony Smith MD [facility] TALIZER documented in this encounter Miscellaneous Notes Result Encounter Note - Marija Pool APRN CNP - 10/04/2018 3:00 PM CRYSTALIZER Nely, Your thyroid levels are normal. The Graves' disease is still in remission. The other thyroid antibodies for Nimesh's were not elevated. Here's a copy of the results for your records. This does not appear to be the reason for your fatigue. You should see your primary care provider for further evaluation if the fatigue continues. Marija Pool NP Endocrinology TALIZER documented in this encounter Plan of Treatment Not on filedocumented as of this encounter Procedures Procedure Name Priority Date/Time Associated Comments Diagnosis TSH Routine 10/04/2018 3:53 PM Graves disease Results for this CRYSTALIZER procedure are i n the results section. THYROID PEROXIDASE Routine 10/04/2018 3:53 PM Graves disease R esults for this ANTIBODY CRYSTALIZER procedure are i n the results section. T4 FREE Routine 10/04/2018 3:53 PM Graves disease Results for this CRYSTALIZER procedure are i n the results section. T3 FREE Routine 10/04/2018 3:53 PM Graves disease Results for this CRYSTALIZER procedure are i n the results section. ANTI THYROGLOBULIN Routine 10/04/2018 3:53 PM Graves disease R esults for this ANTIBODY CRYSTALIZER procedure are i n the results section. documented in this encounter Results Anti thyroglobulin antibody (10/04/2018 3:53 PM CRYSTALIZER) Patholo gist Method Time Signature Thyroglobulin <20 <40 IU/mL 10/06/2018 [facility] Antibody 12:06 PM [facility] Specimen Anatomical Collection Method Collection Time Receive d Time (Source) Location / / Volume Laterality Blood specimen 10/04/2018 3:53 PM 018 3:54 (specimen) CRYSTALIZER PM CRYSTALIZER Marija Pool APRN TECHNICAL DELIVERY MANAGER LAB - BLOOD ORDERABLES Performing Organization Address City/State/ZIP Code Phon e Number [address] Thyroid peroxidase antibody (10/04/2018 3:53 PM CRYSTALIZER) athologist Signature Thyroid 10 <35 IU/mL 10/06/2018 [facility] Peroxidase 12:06 PM [facility] Specimen Anatomical Collection Method Collection Time Receive d Time (Source) Location / / Volume Laterality Blood specimen 10/04/2018 3:53 PM 018 3:54 (specimen) CRYSTALIZER PM CRYSTALIZER Marija Pool APRN, CNP LAB - BLOOD ORDERABLES Performing Organization Address City/State/ZIP Code Phon e Number [address] T3 Free (10/04/2018 3:53 PM CRYSTALIZER) athologist Signature Free T3 2.7 2.3 - 4.2 10/05/2018 [facility] pg/mL 2:01 PM [facility] Specimen Anatomical Collection Method Collection Time Receive d Time (Source) Location / / Volume Laterality Blood specimen 10/04/2018 3:53 PM 018 3:54 (specimen) CRYSTALIZER PM CRYSTALIZER Marija Pool APRN TECHNICAL DELIVERY MANAGER LAB - BLOOD ORDERABLES Performing Organization Address City/State/ZIP Code Phon e Number [address] T4 FREE (10/04/2018 3:53 PM CRYSTALIZER) athologist Signature T4 Free 1.08 0.76 - 1.46 10/05/2018 [facility] ng/dL 1:29 PM [facility] Specimen Anatomical Collection Method Collection Time Receive d Time (Source) Location / / Volume Laterality Blood specimen 10/04/2018 3:53 PM 018 3:54 (specimen) CRYSTALIZER PM CRYSTALIZER Marija Pool APRN TECHNICAL DELIVERY MANAGER LAB - BLOOD ORDERABLES Performing Organization Address City/[facility]/ZIP Code Phon e Number [facility] [address] [place] [address] TSH (10/04/2018 3:53 PM CRYSTALIZER) P athologist Signature TSH 1.10 0.40 - 4.00 10/05/2018 [facility] mU/L 1:29 PM CRYSTALIZER [facility] Specimen Anatomical Collection Method Collection Time Receive d Time (Source) Location / / Volume Laterality Blood specimen 10/04/2018 3:53 PM 018 3:54 (specimen) CRYSTALIZER PM CRYSTALIZER Marija Pool APRN, CNP LAB - BLOOD ORDERABLES Performing Organization Address City/[facility]/ZIP Code Phon e Number [facility] [address] [place] [address] documented in this encounter Visit Diagnoses Diagnosis Graves disease - Primary Toxic diffuse goiter without mention of thyrotoxic crisis or storm documented in this encounter Care Teams Acupuncturist Relationship Specialty Start Date End Date No Ref-Primary, Physician PCP - General 10/04/18 documented as of this encounter
--- OUTSIDE RECORDS SUMMARY | 2022-09-27 07:28 | XMS_ITS | Clinical Summary ---
:1980 Author Organization [place] Address [address] [place] [address] Care Team Providers Name Role Phone No Ref-Primary, Physician Primary Care Provider [phone] Allergies No known active allergies Medications [...] Comments Blood Pressure 116/70 10/04/2018 3:11 PM INTELLIGENCE SENIOR SERGEANT Pulse 66 10/04/2018 3:11 PM INTELLIGENCE SENIOR SERGEANT Temperature 36.9 ??C (98.4 ??F) 10/04/2018 3:11 PM INTELLIGENCE SENIOR SERGEANT Respiratory Rate - - Oxygen Saturation 98% 10/04/2018 3:11 PM INTELLIGENCE SENIOR SERGEANT Inhaled Oxygen Concentration - - Weight 71.4 kg (157 lb 6.4 oz) 10/04/2018 3:11 PM INTELLIGENCE SENIOR SERGEANT Height 167.6 cm (5' 6) 02/22/2017 10:05 [...] Addre ss Type Group BCBS [place] [id number] 2017-Roverto [id number] [address] [address] Indemnity t 0 [place] [address] Care Teams International Accounting Manager Relationship Specialty Start Date End Date No Ref-Primary, Physician PCP - General 10/04/18
--- OUTSIDE RECORDS SUMMARY | 2022-09-27 07:29 | XMS_ITS ---
[...] lable ? Colposcopy of Cervix Information not sankte ilable Notes: *Surgery Date: 07/2004; 01/2005 wnl ? Radical Bunionectomy Information not sanket ilable Notes: *Surgery Date: 1991 ? Tonsillectomy Information not avai lable Notes: *Surgery Date: 2002 ? Tooth Extraction Information not avai lable Notes: *Surgery Date: 2002 Results Lab Results Date Name Specimen Result Interpretation Description Value Range Status Address ? 07/30/2021 HPV DNA, CERVIX&CERVIX ? HPV negative negative [facility] High-risk High for HPV for HPV Memor ial Risk type 16. type 16. Health - Type 16 Lab: [address], [place] ? ? CERVIX&CERVIX ? HPV negative negative [facility] High for HPV for HPV [facility] Risk type 18. type 18. Health - Type 18 Lab: [address], [place] ? ? CERVIX&CERVIX ? HPV negative negative [facility] Other for other for other Lay[place] rial High high risk high risk Heal th - Risk HPV HPV Lab: [address], [place] 07/30/2021 Pap, LB CERVIX&CERVIX ? Case see note ? [facility] - Lab: [address], [place] Past Encounters 08/12/2022 Gynecologic Examination; Administration of Influenza Vaccine; Depressive Disorder Shirley Lynch MD: [address], [address], [place] [address], Ph. 07/30/2021 Gynecologic Examination; Contraception C are Management; Administration of Influenza Vaccine Shirley Lynch MD: [address], [address], [place] [address], Ph. Social History Tobacco Smoking Status Never [...]
--- OUTSIDE RECORDS SUMMARY | 2022-09-27 07:29 | XMS_ITS | Encounter Summary ---
:1980 Author Organization [place] Address [address] [place] [address] Care Team Providers Name Role Phone Unavailable Primary Care Provider Unavailable Reason for Visit Reason Comments RECHECK thyoid Encounter Details Date Type Department Care Team Description 02/22/2017 Office Visit [facility] Boyd Pool dis ease (Primary Dx); [facility] [place] SADIE Paulson CNP [address] [address] [place] [address] [phone] Social History Tobacco Use Types Packs/Day Years [...] this encounter Progress Notes Boyd Pool APRN SUBSTANCE ABUSE NURSE - 02/25/2017 8:35 AM CDT Please call if she doesn't check her Lockitron message. Nely, Your thyoid levels are elevated. 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 ULTRASOUND THYROID 12/06/2016 [...] Follow-up: 3 months Boyd Pool NP Endocrinology [facility] CC: Anthony Smith MD [facility] Tammy Morrow - 02/22/2017 10:00 AM CDT Faxed [phone] Tammy Morrow KILN OPERATOR documented in this encounter Miscellaneous Notes [...] Signature Bilirubin Direct 0.1 0.0 - 0.2 [place] mg/dL [facility] Bilirubin Total 0.4 0.2 - 1.3 [place] mg/dL [facility] Albumin 3.5 3.4 - 5.0 [facility] g/dL [facility] Protein Total 7.3 6.8 - 8.8 [place] g/dL [facility] Alkaline 148 40 - 150 [place] Phosphatase U/L [facility] ALT 15 0 - 50 U/L [facility] AST 10 0 - 45 U/L [facility] Specimen Anatomical Collection Method Collection Time Receive d Time (Source) Location / / Volume Laterality Blood specimen 02/22/2017 10:21 7 (specimen) AM CDT 10:22 AM CDT Boyd Pool APRN, CNP LAB - BLOOD ORDERABLES Performing Organization Address City/State/ZIP Code Phon e Number [facility] [address] [place] [address] WBC count (02/22/2017 10:21 AM CDT) P athologist Signature WBC 5.1 4.0 - 11.0 [place] 10e9/L [facility] Specimen Anatomical Collection Method Collection Time Receive d Time (Source) Location / / Volume Laterality Blood specimen 02/22/2017 10:21 7 (specimen) AM CDT 10:22 AM CDT Boyd Pool APRN SUBSTANCE ABUSE NURSE LAB - BLOOD ORDERABLES Performing Organization Address City/[facility]/ZIP Code Phon e Number [facility] [address] [place] [address] (ABNORMAL) T4 FREE (02/22/2017 10:21 AM CDT) athologist Signature T4 Free 1.90 (H) 0.76 - [facility] 1.46 ng/dL [facility] Specimen Anatomical Collection Method Collection Time Receive d Time (Source) Location / / Volume Laterality Blood specimen 02/22/2017 10:21 7 (specimen) AM CDT 10:22 AM CDT Boyd Pool APRN SUBSTANCE ABUSE NURSE LAB - BLOOD ORDERABLES Performing Organization Address City/[facility]/ZIP Code Phon e Number [facility] [address] [place] [address] (ABNORMAL) TSH (02/22/2017 10:21 AM CDT) P athologist Signature TSH <0.01 (L) 0.40 - [facility] 4.00 mU/L [facility] Specimen Anatomical Collection Method Collection Time Receive d Time (Source) Location / / Volume Laterality Blood specimen 02/22/2017 10:21 7 (specimen) AM CDT 10:22 AM CDT oByd Pool APRN SUBSTANCE ABUSE NURSE LAB - BLOOD ORDERABLES Performing Organization Address City/[facility]/ZIP Code Phon e Number [facility] [address] [place] [address] documented in this encounter Visit Diagnoses Diagnosis Graves disease - Primary Toxic diffuse goiter without mention of thyrotoxic crisis or storm Hyperthyroidism Thyrotoxicosis without mention of goiter or other cause, without mention of thyrotoxic crisis or storm documented in this encounter
--- OUTSIDE RECORDS SUMMARY | 2022-09-27 07:29 | XMS_ITS | Encounter Summary ---
:1980 Author Organization [place] Address [facility] [place] [address] Care Team Providers Name Role Phone Unavailable Primary Care Provider Unavailable Reason for Visit (Routine) - Closed Specialty Diagnoses / Procedures Referred By Contact Refer red To Contact Radiology / Diagnoses Epic order, sb pt. Rh Ultrasound cc Radiology. Procedures US THYROID [address] [facility] [address] [place] [address] Phone: Fax: Referral ID Status Reason Start Date Expiration Date Visits Requ ested Visits Authorized [id number] Closed 11/29/2016 11/29/2017 1 1 Encounter Details Date Type Department Care Team Description 12/06/2016 Hospital Encounter [facility] Marija Pool [facility] LILLI Paulson [facility] [address] [address] [place], [place] [address] [address] [place], [place] [phone] [address] (Work) [phone] Social History Tobacco Use Types Packs/Day Years [...] Pool APRN CNP - 12/06/2016 11:59 PM CERTIFIED MEDICAL TECHNICIAN Quick Note: Nely, The ultrasound did not [...] any questions. Take Marija rea NP Endocrinology IFIED MEDICAL TECHNICIAN documented in this encounter Plan of Treatment Not on filedocumented as of this encounter Procedures Procedure Name Priority Date/Time Associated Diagnosis Comme nts US THYROID Routine 12/06/2016 10:31 AM Graves disease Result s for this CERTIFIED MEDICAL TECHNICIAN procedure are i n the results section . documented in this encounter Results US Thyroid (12/06/2016 10:31 AM CERTIFIED MEDICAL TECHNICIAN) Anatomical Region Laterality Modality Head Ultrasound Specimen (Source) Anatomical Location Collection Method / Collectio n Time Received Time / Laterality Volume Impressions 12/07/2016 11:51 AM CERTIFIED MEDICAL TECHNICIAN IMPRESSION: ??Heterogeneous appearance of the thyroid without distinct nodules. ?? FRANKLYN VIRAMONTES MD Narrative 12/07/2016 11:51 AM CERTIFIED MEDICAL TECHNICIAN ULTRASOUND THYROID ??12/06/2016 10:31 AM HISTORY: [...] nodules. FRANKLYN VIRAMONTES MD Marija Pool APRN [facility] US ORDERABLES documented in this encounter Visit Diagnoses Diagnosis Graves disease Toxic diffuse goiter without mention of thyrotoxic crisis or storm documented in this encounter
--- OUTSIDE RECORDS SUMMARY | 2022-09-27 07:29 | XMS_ITS | Encounter Summary ---
:1980 Author Organization [facility] Address [address] [place] [address] Care Team Providers Name Role Phone Unavailable Primary Care Provider Unavailable Reason for Visit Reason Comments Thyroid Problem Encounter Details Date Type Department Care Team Description 10/13/2016 Office Visit [facility] Boyd Pool idism (Primary [facility] [place] SADIE Paulson CNP Dx) [address] [place] [address], [address] [place] [address] [phone] Social History Tobacco Use Types Packs/Day Years Used Date Smoking Tobacco: Never Sex Assigned at Date Recorded Not on file documented as of this encounter Last Filed Vital Signs Vital Sign Reading Time Taken Comments Blood Pressure 120/64 10/13/2016 3:37 PM AUTOMATIC OPERATOR Pulse 84 10/13/2016 3:37 PM AUTOMATIC OPERATOR Temperature - - Respiratory Rate - - Oxygen Saturation 99% 10/13/2016 3:37 PM AUTOMATIC OPERATOR Inhaled Oxygen Concentration - - Weight 63 kg (139 lb) 10/13/2016 3:37 PM AUTOMATIC OPERATOR Height - - Body Mass Index - - documented in this encounter Progress Notes Boyd Pool APRN CNP - 10/21/2016 7:02 AM AUTOMATIC OPERATOR Quick Note: Please mail a copy of the results and my comments to the patient. Nely, Your test for Graves's disease was positive. We can discuss this in more detail at your follow up visit. Here's a copy of the results for your records. Take Boyd rea NP Endocrinology Boyd Burgos APRN DOOR TRIMMER - 10/13/2016 3:53 PM CST Name: Nely Bean Seen at the request of No ref. 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 Will obtain thyroid ultrasound for further evaluation. MATIC OPERATOR documented in this encounter Nursing Notes Shanelle Feliz - 10/13/2016 3:38 PM CST Chief Complaint Patient presents with ??? Thyroid Problem Initial BP 120/64 mmHg Pulse 84 Wt 139 lb (63.05 kg) SpO2 99% There is no height on file to calculate BMI. BP completed using cuff size: regular Shanelle Feliz MA MATIC OPERATOR documented in this encounter Miscellaneous Notes Addendum Note - Boyd Pool APRN CNP - 10/18/2016 9:23 AM AUTOMATIC OPERATOR Addended by: BOYD POOL on: 10/18/2016 09:23 AM Modules accepted: Orders MATIC OPERATOR documented in this encounter Plan of Treatment Not on filedocumented as of this encounter Procedures Procedure Name Priority Date/Time Associated Diagnosis Comme nts THYROID STIMULATING Routine 10/13/2016 4:26 Hyperthyroidism Re sults for this IMMUNOGLOBULIN PM AUTOMATIC OPERATOR procedure are in the results section. HEPATIC FUNCTION PANEL Routine 10/13/2016 4:26 Hyperthyroidism Results for this PM AUTOMATIC OPERATOR procedure are i n the results section. documented in this encounter Results (ABNORMAL) Thyroid stimulating immunoglobulin (10/13/2016 4:26 PM AUTOMATIC OPERATOR) P athologist Signature Thyroid Stim 3.7 (H) [facility] Comment: Reference range: <=1.3 Unit: TSI index (Note) Test Performed by: [address] [address] Technicians And Trades Workers: Savage Garza II, M.D., Ph.D. Specimen Anatomical Collection Method Collection Time Receive d Time (Source) Location / / Volume Laterality Blood specimen 10/13/2016 4:26 PM 016 4:27 (specimen) AUTOMATIC OPERATOR PM AUTOMATIC OPERATOR Boyd Pool APRN, CNP LAB - BLOOD ORDERABLES Performing Organization Address [facility]/ZIP Code Phon e Number [facility] [address] [place] [address] (ABNORMAL) Hepatic panel (10/13/2016 4:26 PM AUTOMATIC OPERATOR) [facility] Method Time Signature Bilirubin Direct 0.1 0.0 - 0.2 [place] mg/dL [facility] Bilirubin Total 0.4 0.2 - 1.3 [place] mg/dL [facility] Albumin 3.5 3.4 - 5.0 [place] g/dL [facility] Protein Total 7.1 6.8 - 8.8 [place] g/dL [facility] Alkaline 123 40 - 150 [place] Phosphatase U/L [facility] ALT 53 (H) 0 - 50 U/L [facility] AST 33 0 - 45 U/L [facility] Specimen Anatomical Collection Method Collection Time Receive d Time (Source) Location / / Volume Laterality Blood specimen 10/13/2016 4:26 PM 016 4:27 (specimen) AUTOMATIC OPERATOR PM AUTOMATIC OPERATOR Byod Pool APRN, CNP LAB - BLOOD ORDERABLES Performing Organization Address City/[facility]/ZIP Code Phon e Number [facility] [address] [place] [address] documented in this encounter Visit Diagnoses Diagnosis Hyperthyroidism - Primary Thyrotoxicosis without mention of goiter or other cause, without mention of thyrotoxic crisis or storm documented in this encounter
--- OUTSIDE RECORDS SUMMARY | 2022-09-27 07:29 | XMS_ITS | Encounter Summary ---
:1980 Author Organization [facility] Address [address] [place] [address] Care Team Providers Name Role Phone Unavailable Primary Care Provider Unavailable Reason for Visit Reason Onset Date Comments Results 11/25/2016 Encounter Details Date Type Department Care Team Description 11/25/2016 Telephone [facility] Marija Pool, Results [place] SITE SAFETY COORDINATOR MILITARY TECHNICIAN [id number] [place] [address] [phone] [place] [address] (Wo rk) Social History Tobacco [...] Patient agrees with plan. Lashay Chang RN KINDERGARTEN TEACHER Telephone Encounter - Lashay Chang RN - 11/25/2016 11:21 AM CST Notes Recorded by Lashay Chang RN on 11/25/2016 at 11:21 AM L/M to call. ??See telephone encounter. ??Lashay Chang RN ------ Notes Recorded by Marija Pool, SITE SAFETY COORDINATOR MILITARY TECHNICIAN on 11/24/2016 at 7:50 PM Please call [...] let me know. Marija Pool NP Endocrinology KINDERGARTEN TEACHER documented in this encounter Plan of Treatment Not on filedocumented as of this encounter Visit Diagnoses Not on filedocumented in this encounter
--- OUTSIDE RECORDS SUMMARY | 2022-09-27 07:29 | XMS_ITS | Encounter Summary ---
:1980 Author Reason for Visit *ANNUAL EXAM 40 - 65 PREMENOPAUSAL Assessment and Plan 1. Gynecologic examination - Encouraged breast self-awareness. - Recommend yearly mammogram. - Encouraged regular exercise and health y diet. - Discussed cervical cancer screening gu idelines. 2. Administration of influenza vaccine - Flu shot today. ? Flucelvax Quad [id number] (PF) 60 mcg (15 mcg x 4)/0.5 [...] Influenza Vaccine; Depressive Disorder Shirley Lynch MD: [address] [place] [address], [address], [place] [address], Ph. History of Present Illness ? Annual [...] None recorded. Physical Exam ? Annual Exam ([facility]) Reported By: Patient Constitutional: *General Appearance: healthy [...]
--- OUTSIDE RECORDS SUMMARY | 2022-09-27 07:29 | XMS_ITS | Encounter Summary ---
:1980 Author Organization [place] Address [address] [place] [address] Care Team Providers Name Role Phone Unavailable Primary Care Provider Unavailable Reason for Visit Reason Comments RECHECK Thyroid Encounter Details Date Type Department Care Team Description 11/23/2016 Office Visit [facility] Boyd Pool ease (Primary Dx); [facility] [place] SADIE Paulson CNP [place] [id number] [address] [place] [address] [phone] Social History Tobacco Use Types Packs/Day Years Used Date Smoking Tobacco: Never Alcohol Use Standard Drinks/Week Comments Not Asked 0 (1 standard drink = 0.6 oz pure alcoho l) Sex Assigned at Date Recorded Not on file documented as of this encounter Last Filed Vital Signs Vital Sign Reading Time Taken Comments Blood Pressure 110/66 11/23/2016 10:02 AM SENIOR SHAREPOINT ARCHITECT Pulse 70 11/23/2016 10:02 AM SENIOR SHAREPOINT ARCHITECT Temperature 36.8 ??C (98.3 ??F) 11/23/2016 10:02 AM SENIOR SHAREPOINT ARCHITECT Respiratory Rate - - Oxygen Saturation - - Inhaled Oxygen Concentration - - Weight 63.2 kg (139 lb 4.8 oz) 11/23/2016 10:02 AM SENIOR SHAREPOINT ARCHITECT Height 173.4 cm (5' 8.25) 11/23/2016 10:02 AM SENIOR SHAREPOINT ARCHITECT Body Mass Index 21.03 11/23/2016 10:02 AM SENIOR SHAREPOINT ARCHITECT documented in this encounter Progress Notes Boyd Pool APRN CNP - 11/24/2016 7:50 PM SENIOR SHAREPOINT ARCHITECT Quick Note: Please call - Nely, Your [...] size: alex Martin CMA 11/23/2016 10:04 AM OR SHAREPOINT ARCHITECT Boyd Pool APRN CNP - 11/23/2016 9:57 [...] thinning Diarrhea/Constipation: No 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 All pertinent notes, [...] Follow-up: 3 months Boyd Pool NP Endocrinology [facility] CC: Anthony Smith MD [facility] OR SHAREPOINT ARCHITECT documented in this encounter Miscellaneous Notes Addendum Note - Boyd Pool APRN CNP - 11/24/2016 7:54 PM SENIOR SHAREPOINT ARCHITECT Addended by: BOYD POOL on: 11/24/2016 07:54 PM Modules accepted: Orders OR SHAREPOINT ARCHITECT documented in this encounter Plan of Treatment Not on filedocumented as of this encounter Procedures Procedure Name Priority Date/Time Associated Diagnosis Comme nts WBC COUNT Routine 11/23/2016 10:30 AM Graves disease Result s for this SENIOR SHAREPOINT ARCHITECT procedure are i n the results section. TSH Routine 11/23/2016 10:30 AM Graves disease Result s for this SENIOR SHAREPOINT ARCHITECT procedure are i n the results section. T4 FREE Routine 11/23/2016 10:30 AM Graves disease Result s for this SENIOR SHAREPOINT ARCHITECT procedure are i n the results section. HEPATIC FUNCTION Routine 11/23/2016 10:30 AM Graves disease Re sults for this PANEL SENIOR SHAREPOINT ARCHITECT procedure are i n the results section. documented in this encounter Results US Thyroid (12/06/2016 10:31 AM SENIOR SHAREPOINT ARCHITECT) Anatomical Region Laterality Modality Head Ultrasound Specimen (Source) Anatomical Location Collection Method / Collectio n Time Received Time / Laterality Volume Impressions 12/07/2016 11:51 AM SENIOR SHAREPOINT ARCHITECT IMPRESSION: ??Heterogeneous appearance of the thyroid without distinct nodules. ?? FRANKLYN VIRAMONTES MD Narrative 12/07/2016 11:51 AM SENIOR SHAREPOINT ARCHITECT ULTRASOUND THYROID ??12/06/2016 10:31 AM HISTORY: Thyrotoxicosis [...] US ORDERABLES Hepatic panel (11/23/2016 10:30 AM SENIOR SHAREPOINT ARCHITECT) Analysis Performed At Patho logist Time Signature Bilirubin Direct <0.1 0.0 - 0.2 [place] mg/dL [facility] Bilirubin Total 0.4 0.2 - 1.3 [place] mg/dL [facility] Albumin 3.5 3.4 - 5.0 [place] g/dL [facility] Protein Total 7.2 6.8 - 8.8 [place] g/dL [facility] Alkaline 147 40 - 150 [place] Phosphatase U/L [facility] ALT 29 0 - 50 U/L [facility] AST 20 0 - 45 U/L [facility] Specimen Anatomical Collection Method Collection Time Receive d Time (Source) Location / / Volume Laterality Blood specimen 11/23/2016 10:30 7 (specimen) AM SENIOR SHAREPOINT ARCHITECT 10:31 AM SENIOR SHAREPOINT ARCHITECT Boyd Pool APRN, CNP LAB - BLOOD ORDERABLES Performing Organization Address City/[facility]/ZIP Code Phon e Number [facility] [address] [place] [address] WBC count (11/23/2016 10:30 AM SENIOR SHAREPOINT ARCHITECT) P athologist Signature WBC 4.2 4.0 - 11.0 [place] 10e9/L [facility] Specimen Anatomical Collection Method Collection Time Receive d Time (Source) Location / / Volume Laterality Blood specimen 11/23/2016 10:30 7 (specimen) AM SENIOR SHAREPOINT ARCHITECT 10:31 AM SENIOR SHAREPOINT ARCHITECT Boyd Pool APRN, CNP LAB - BLOOD ORDERABLES Performing Organization Address City/[facility] Phon e Number [facility] [address] [place] [address] T4 FREE (11/23/2016 10:30 AM SENIOR SHAREPOINT ARCHITECT) P athologist Signature T4 Free 1.04 0.76 - 1.46 [facility] ng/dL [facility] Specimen Anatomical Collection Method Collection Time Receive d Time (Source) Location / / Volume Laterality Blood specimen 11/23/2016 10:30 7 (specimen) AM SENIOR SHAREPOINT ARCHITECT 10:31 AM SENIOR SHAREPOINT ARCHITECT Boyd Pool APRN OCTAVE BOARD ASSEMBLER LAB - BLOOD ORDERABLES Performing Organization Address City/[facility]/ZIP Code Phon e Number [facility] [address] [address] (ABNORMAL) TSH (11/23/2016 10:30 AM SENIOR SHAREPOINT ARCHITECT) P athologist Signature TSH <0.01 (L) 0.40 - [facility] 4.00 mU/L [facility] Specimen Anatomical Collection Method Collection Time Receive d Time (Source) Location / / Volume Laterality Blood specimen 11/23/2016 10:30 7 (specimen) AM SENIOR SHAREPOINT ARCHITECT 10:31 AM SENIOR SHAREPOINT ARCHITECT Boyd Pool APRN, CNP LAB - BLOOD ORDERABLES Performing Organization Address City/[facility]/ZIP Code Phon e Number [facility] [address] [place] [address] documented in this encounter Visit Diagnoses Diagnosis Graves disease - Primary Toxic diffuse goiter without mention of thyrotoxic crisis or storm Hyperthyroidism Thyrotoxicosis without mention of goiter or other cause, without mention of thyrotoxic crisis or storm Graves disease Toxic diffuse goiter without mention of thyrotoxic crisis or storm documented in this encounter
[2022-09-27 14:00] LABS: Chloride* 105 mmol/L (96-114); Potassium* 5.3 mmol/L (3.6-5.1); Sodium* 141 mmol/L (135-149)
[2022-09-27 14:03] LABS: Blood Urea Nitrogen* 21 mg/dL (5-24); Carbon Dioxide* 30 mmol/L (20-32); Creatinine* 0.7 mg/dL (0.5-1.5); Estimated Glomerular Filt Rate 111 ml/min; Glucose* 115 mg/dL (60-115)
[2022-09-27 14:04] LABS: Calcium* 9.8 mg/dL (8.4-10.6)
== END 2022-09-27 07:27 | disposition home or self-care (01) ==
PROVIDERS: PCP Family Medicine; Visit Provider Family Medicine
DX: I10 Essential (primary) hypertension (principal); E87.5 Hyperkalemia; E05.00 Thyrotoxicosis with diffuse goiter without thyrotoxic crisis or storm
CPT/HCPCS: 80048; 83735

== ENCOUNTER 2022-12-20 08:33 | Outpatient (CLI) | payer BC, SELFPAY | END 2022-12-20 08:34 | disposition home or self-care (01) | LOC: OP CLINIC 08:34 | PROVIDERS: PCP Family Medicine; Visit Provider Surgery | DX: Z12.11 Encounter for screening for malignant neoplasm of colon (principal) | CPT/HCPCS: 45378; J2250; J3010 ==

== ENCOUNTER 2022-12-30 17:23 | Outpatient (CLI) | payer BC, SELFPAY | END 2022-12-30 17:24 | disposition home or self-care (01) | PROVIDERS: PCP Family Medicine; Visit Provider Family Medicine | DX: E05.00 Thyrotoxicosis with diffuse goiter without thyrotoxic crisis or storm (principal); E78.5 Hyperlipidemia, unspecified | CPT/HCPCS: 84439; 84443 ==

== ENCOUNTER 2023-01-12 10:30 | Outpatient (CLI) | payer BC, SELFPAY ==
--- NOTE | 2023-01-12 10:45 | CRLHL7_ITS ---
For Patients: As a result of the 21st Century Cures Act, medical imaging exams and procedure reports are released immediately into your electronic medical record. You may view this report before your referring provider. If you have questions, please contact your health care provider. INDICATION: Cough, dysphagia TECHNIQUE: Modified barium swallow. Fluoroscopic time 51 seconds. COMPARISON: None FINDINGS/IMPRESSION: Anatomical structures are normal. Swallowing mechanism appears within normal limits. No episodes of aspiration. No significant findings. Laryngeal penetration occurred with larger boluses of thin barium. Dictated by Dick Hurtado MD @ 01/12/2023 10:55:02 AM (Electronically Signed)
--- NOTE | 2023-01-12 12:45 | SLP.EVAL ---
Please review, sign and return Thank you Debbi López CHIEF JAILER CHIEF JAILER Eval CHIEF JAILER Eval Start: 01/12/23 11:18 Freq: Status: Active Protocol: Document 01/12/23 11:18 S (Rec: 01/12/23 11:24 [facility] [id number]) E-signed By Debbi López CCC, CHIEF JAILER CHIEF JAILER System Review History & Reason For Referral Type of Speech Evaluation Modified Barium Swallow Evaluation Rehabilitation Order Evaluation Date of Order 12/30/22 Reason for Referral difficulty swallowing Treatment Diagnosis Dysphagia Hearing Information Hearing Status Normal Vision Information Vision Status Normal Patient Orientation Orientation & Mental Status Normal CHIEF JAILER Initial Assessment/POC Subjective Information Subjective/Pain Comment Patient independently ambulated to the xray suite. Assessment & Impression Assessment/Impression Patient is a 42 year old female referred for a modified barium swallow study due to episodes of coughing after she eats. ORAL MOTOR FUNCTION AND DENTITION Patient able to move tongue and lips adequately and has adequate dentition. THIN LIQUID Patient took multiple sips of thin liquid by cup. She was able to initiate a swallow with a very slight delay. She swallowed without penetration or aspiration. PUREE Patient given a teaspoon of puree. She was able to manipulate and swallow without difficulty and there was no penetration, aspiration or pharyngeal residue. MUFFIN AND COOKIE WITH BARIUM PUREE Patient given separate trials of muffin and cookie each mixed with barium puree. She was able to swallow without penetration, aspiration or pharyngeal residue. IMPRESSIONS AND RECOMMENDATIONS Patient exhibits a safe, functional oral pharyngeal swallow. She had one episode with thin liquid where she had flash penetration that was ejected. Penetration only happened the one time not with all trials. There was no aspiration or pharyngeal residue occurring on any trial . Patient had a delayed cough at one point but there was no evidence of anything in the pharyngeal vestibule or airway . Recommend patient take small bites and sips, chew well and don't eat too fast. She has an appointment with ENT later this month. Therapist Signature & License # I Certify That Therapy Services Provided Therapist Signature & License Number Debbi López CCC-CHIEF JAILER, # [id number] Physician Signature Signature of Physician Indicates Medically Needed Services Physician Signature & Date Required Please Sign/Date Here Speech/Language Pathology Billing Units Billing Units Eval Swallow Motion Fluoro 1
== END 2023-01-12 10:31 | disposition home or self-care (01) ==
LOC: RAD 10:31
PROVIDERS: PCP Family Medicine; Visit Provider Family Medicine
DX: R13.10 Dysphagia, unspecified (principal); R05.9 Cough, unspecified
CPT/HCPCS: 74230; 92611

== ENCOUNTER 2023-11-07 10:38 | Outpatient (CLI) | payer BC, SELFPAY | END 2023-11-07 10:39 | disposition home or self-care (01) | PROVIDERS: PCP Family Medicine; Visit Provider Family Medicine | DX: E05.00 Thyrotoxicosis with diffuse goiter without thyrotoxic crisis or storm (principal); E78.2 Mixed hyperlipidemia | CPT/HCPCS: 80053; 80061; 84439; 84443 ==

== ENCOUNTER 2025-01-23 08:13 | Outpatient (CLI) | payer OTHER, SELFPAY | END 2025-01-23 08:14 | disposition home or self-care (01) | PROVIDERS: Visit Provider Nurse Practitioner Family | DX: E05.00 Thyrotoxicosis with diffuse goiter without thyrotoxic crisis or storm (principal) | CPT/HCPCS: 84439; 84443 ==